=== PATIENT | male | born 1970 | race Caucasian/White ===

== ENCOUNTER 2022-09-04 08:19 | Observation (INO) | payer OTHER, SELFPAY ==
[2022-09-04] VITALS (23 sets, daily range): BP systolic 148–180; BP diastolic 77–109; PULSE 67–95; RESP 12–20; TEMP 36.3–37; O2SAT 95–100; BMI 45.0
--- NOTE | 2022-09-04 | ECHO_ITS ---
Patient Info Name: Pako Kitchen Age: 51 years : 1970 Gender: Male Ht: 72 in Wt: 343 lbs BSA: 2.89 m2 HR: 73 bpm BP: 156 / 105 mmHg Heart Rhythm: Sinus Rhythm Technical Quality: Fair Exam Date: 09/04/2022 4:29 PM Exam Location: [facility] Pul[facility] Patient Status: Outpatient Admit Date: 09/04/2022 Staff Ordering Physician: Miguel Ángel Mo MD Junior Sales Representative: Yennifer Salazar RDCS Attending Provider: Da Turcios MD Exam Type: CA echo dop bubble study w con Study Info Indications - cva Complete two-dimentional, color flow and Doppler transthoracic echocardiogram is performed with agitated saline and with contrast to opacify the left ventricle and to improve the delineation of the left ventricle endocardial borders. Contrast/Agitated Saline Contrast/Ag. Saline: Definity Amount: 3.00 ml Administered By: Yennifer Salazar RDCS Existing IV Access: Yes IV Access Condition: patent with no signs of infiltration Contrast/Ag. Saline: Agitated Saline Amount: 20.00 ml Administered By: Colleen Llamas [facility] Existing IV Access: Yes IV Access Condition: patent with no signs of infiltration Summary 1. Left ventricular chamber dimension is mildly enlarged. 2. Left ventricular systolic function is normal, estimated at >70%. 3. There is moderately increased left ventricular wall thickness. 4. The left ventricular diastolic function is grade I diastolic dysfunction. 5. Right ventricular systolic function is normal. 6. There is trace tricuspid valve regurgitation. Left Ventricle Left ventricular chamber dimension is mildly enlarged. Left ventricular systolic function is normal, estimated at >70%. There is moderately increased left ventricular wall thickness. The left ventricular diastolic function is grade I diastolic dysfunction. Right Ventricle Right ventricular chamber dimension is normal. Right ventricular systolic function is normal. Left Atria Left atrial chamber dimension is normal. Right Atria Right atrial chamber dimension is normal. Atrial Septum Intact interatrial septum visualized by agitated saline imaging. Aortic Valve The aortic valve is trileaflet. There is no aortic valve stenosis. There is no aortic valve regurgitation. Pulmonic Valve The pulmonic valve is not well visualized. Mitral Valve The mitral valve has normal leaflets. There is no mitral valve stenosis. There is no mitral valve regurgitation. Tricuspid Valve There is trace tricuspid valve regurgitation. Pericardium/Pleural There is no pericardial effusion. Aorta The aortic root size at the sinus of Valsalva is normal. Left Ventricular Outflow Tract Name Value Normal LVOT 2D LVOT Diameter 2.2 cm LVOT Doppler LVOT Peak Gradient 2 mmHg LVOT Mean Gradient 1 mmHg LVOT VTI 12 cm LVOT VTI/AV VTI Ratio 0.8 LVOT Stroke Volume 47 ml LVO
--- NOTE | ~2022-09-04 | US_ITS ---
EXAMINATION: US carotid duplex BI DATE: 09/05/2022 09:16 INDICATION: CVA TECHNIQUE: Grayscale, color Doppler, and pulsed Doppler images of the cervical carotid arteries were obtained. The degree of vessel stenosis is placed in one of the following categories: normal, <50%, 5 0-69%, >=70% but less than near-occlusion, near-occlusion, or total occlusion. Note that percent sten osis relative to normal distal artery lumen diameter is indirectly measured from velocity measurement s as described by Magdy, et al. Radiology 2003; 229:340-346. Notes: Normal: Peak systolic velocity <125 centimeters/sec and no plaque <50%. Peak systolic velocity <125 ( EDV <40; ICA/CCA PSV ratio <2.0; used these factors only a tandem lesions or low cardiac output or co ntralateral disease) 50-69 %: PSV 125-230 (EDV 40-100; ratio 2-4) >= 70% but less than near occlusion: PSV greater than 230 (EDV > 100; ratio> 4.0) Near Occlusion: PSV that is variable; markedly narrowed lumen Occlusion: Absent flow on color/spectral Doppler and no lumen on yao scale. COMPARISON: None. FINDINGS: RIGHT: The right common carotid artery (CCA) peak systolic velocity (PSV) is 147 cm/s. The right internal ca rotid artery (ICA) PSV is 141 cm/s. The right ICA end-diastolic velocity (EDV) is 30 cm/s. The right ICA/CCA PSV ratio is 1.0. The external carotid artery (ECA) PSV is 118 cm/s. There is antegrade flow in the right vertebral artery. LEFT: The left CCA PSV is 105 cm/s. The left ICA PSV is 76 cm/s. The left ICA EDV is 12 cm/s. The left ICA/ CCA PSV ratio is 0.7. The ECA PSV is 144 cm/s. There is antegrade flow in the left vertebral artery. IMPRESSION: 1. 50-69% stenosis in the right internal carotid artery by sonographic criteria. 2. Less than 50% stenosis in the left internal carotid artery by sonographic criteria. Reviewed, dictated and finalized at location A. STICKER IMPRESSION: 1. 50-69% stenosis in the right internal carotid artery by sonographic criteria . 2. Less than 50% stenosis in the left internal carotid artery by sonographic cr iteria.
--- NOTE | ~2022-09-04 | XR_ITS ---
EXAMINATION: XR chest 2V 09/04/2022 09:05 INDICATION: Shortness of breath PROCEDURE: 2 view chest COMPARISON: No prior studies for comparison. FINDINGS: The lungs are clear. The cardiomediastinal silhouette is within normal limits. There are no pleural effusions. There is no pneumothorax suspected. IMPRESSION: 1: NO ACUTE CARDIOPULMONARY DISEASE. Reviewed, dictated and finalized at location A. RINTENDENT POWER
--- NOTE | ~2022-09-04 | MR_ITS ---
EXAMINATION: MR brain/brain stem wo/w con DATE: 09/05/2022 08:59 INDICATION: Cerebrovascular accident. TECHNIQUE: Magnetic resonance imaging (MRI) of the brain and brainstem was performed without and with 20 mL MultiHance intravenous contrast. COMPARISON: Head CT 09/04/2022 FINDINGS: There are acute infarcts involving right frontal parietal region, right parietal lobe, and the bilateral occipital lobes. There is an old infarct in posterior right frontal lobe. There is a sm all old infarct in right lentiform nucleus. There is no intracranial hemorrhage or abnormal mass lesi on. The ventricles are normal in size. There is mild mucosal thickening in the paranasal sinuses. The orbits are normal. There is a trace right mastoid effusion. IMPRESSION: 1. Acute infarcts involving the right frontoparietal region, right parietal lobe, and bilateral occip ital lobes. 2. Old infarcts in posterior right frontal lobe and right lentiform nucleus. Reviewed, dictated and finalized at location A. OLEUM REFINERY WORKER IMPRESSION: 1. Acute infarcts involving the right frontoparietal region, right parietal lob e, and bilateral occipital lobes. 2. Old infarcts in posterior right frontal lobe and right lentiform nucleus.
--- NOTE | ~2022-09-04 | CT_ITS ---
EXAMINATION: CT brain wo con DATE: 09/04/2022 09:00 INDICATION: Left arm heaviness, numbness. TECHNIQUE: Computed tomography (CT) of the head was performed without intravenous contrast. The mA wa s adjusted according to patient size. Iterative reconstruction technique was employed. The dose-lengt h product was 605.33 mGy-cm. COMPARISON: None FINDINGS: There is an infarct in right parietal lobe. There is a small infarct in right frontal lobe. There is no intracranial hemorrhage or abnormal mass lesion. The ventricles are normal in size. The orbits are normal. There is mild mucosal thickening in the paranasal sinuses. There is a small right mastoid effusion. There is cerumen in the external auditory canals. IMPRESSION: 1. Infarct in right parietal lobe, likely acute or subacute. 2. Small age-indeterminate infarct in right frontal lobe. Reviewed, dictated and finalized at location A. CE SUPPORT CLERK
--- NOTE | 2022-09-04 08:44 | ECG_ITS ---
Measurements Intervals [place] Rate: 75 P: 35 MO: 159 QRS: -20 QRSD: 102 T: 31 QT: 378 QTc: 424 Interpretive Statements SINUS RHYTHM NORMAL ECG NO PREVIOUS ECG AVAILABLE FOR COMPARISON Electronically Signed On 09-04-2022 10:51:17 SUBMARINE ELEMENT COORDINATOR by Bean Rendon D.O.
[2022-09-04 09:03] LABS: Basophils Absolute Auto 0.1 K/mm3 (0.0-0.1); Basophils Percent Auto 0.7 % (0.2-1.2); Eosinophils Absolute Auto 0.2 K/mm3 (0-0.3); Eosinophils Percent Auto 2.2 % (0-4.4); Hematocrit 44.2 % (42.0-52.0); Hemoglobin 15.1 g/dL (14.0-18.0); Immature Granulocyte Absolute 0.05 K/mm3 (0.00-0.031); Immature Granulocyte Percent A 0.7 % (0-0.5); Lymphocytes Absolute Auto 1.72 K/mm3 (0.9-3.2); Lymphocytes Percent Auto 23.7 % (18.3-44.2); Mean Corpuscular HGB Conc 34.2 g/dl (32-36); Mean Corpuscular Hemoglobin 29.1 pg (26-34); Mean Corpuscular Volume 85.2 fl (80-100); Mean Platelet Volume 9.4 fl (7.4-10.4); Monocytes Absolute Auto 0.7 K/mm3 (0.1-0.6); Monocytes Percent Auto 9.1 % (2.6-8.5); Neutrophils Absolute Auto 4.6 K/mm3 (1.3-6.7); Neutrophils Percent Auto 63.6 % (45.5-73.1); Platelet Count Result 750 k/mm3 (150-375); Red Blood Count 5.19 M/mm3 (4.6-6.20); Red Cell Distribution Width 13.4 % (11.5-14.5); White Blood Count 7.3 K/mm3 (4.5-10.0)
[2022-09-04 09:15] LABS: INR 1.1; Partial Thromboplastin Time 26.8 SECONDS (22.3-36.8); Prothrombin Time 13.3 Seconds (11.1-14.7)
[2022-09-04 09:21] LABS: Alanine Aminotransferase 40 U/L (6-50); Albumin Level 4.6 g/dL (3.5-5.1); Alkaline Phosphatase 78 U/L (38-126); Anion Gap 14 mmol/L (8-16); Aspartate Amino Transferase 38 U/L (17-59); Bilirubin,Total 0.6 mg/dL (0.2-1.3); Blood Urea Nitrogen 12 mg/dL (9-20); Calcium 8.8 mg/dL (8.4-10.2); Carbon Dioxide 23 mmol/L (22-30); Chloride 99 mmol/L (98-107); Estimated CRCL calculation 168 ml/min; Estimated Glomerular Filt Rate > 60; Glucose 309 mg/dL (65-110); Lipase 173 U/L (23-300); Potassium 4.3 mmol/L (3.4-5.0); Sodium 136 mmol/L (137-145)
[2022-09-04 09:31] LABS: Troponin I 0.025 ng/mL (0.000-0.034)
[2022-09-04] MEDS: ASPIRIN 81 MG CHEWABLE TABLET 324 MG PO (10:59)
--- NOTE | 2022-09-04 11:19 | ED.NEUROSD ---
HPI - Neuro Symptoms/Deficit General Chief Complaint: Neuro Symptoms/Deficit Stated Complaint: left arm numb since fri no control, bs over 300's Time Seen by Provider: 09/04/22 09:34 Source: patient Mode of arrival: ambulatory Limitations: no limitations History of Present Illness HPI Narrative: 51-year-old with a history of hypertension, diabetes, hyperlipidemia, seizure disorder on Keppra here with complaints of left arm heaviness for past 4 days, he also states that his his fingertips on the left are hypersensitive to touch. He denies having any headache, chest pain. He is able to ambulate without any problem. Onset (ago): day(s) (4) Location: left arm History of same: Yes Severity: moderate Relieving factors: none Exacerbating factors: none Context: gradual onset On Anticoagulants: No Associated symptoms: denies other symptoms Related Data Allergies Allergy/AdvReac Type Severity Reaction Status Date / Time No Known Allergies Allergy Verified 09/04/22 09:44 Review of Systems Review of Systems: All systems reviewed & are unremarkable except as noted in HPI and below Constitutional: Constitutional: Reports no additional constitutional complaints Eyes: Eyes: Reports no additional eye complaints ENT: Reports system reviewed and no additional complaints, except as documented Cardiovascular: Cardiovascular: Reports no additional cardiovascular complaints Respiratory: Respiratory: Reports no additional respiratory complaints Gastrointestinal: Gastrointestinal: Reports no additional gastrointestinal complaints Musculoskeletal: Musculoskeletal: Reports no additional musculoskeletal complaints Integumentary/Breasts: Skin/Breast: Reports system reviewed and no additional complaints, except as docu Neurologic: Reports as per HPI Psychiatric: Psychiatric: Reports no additional psychiatric complaints PMFSH Past Medical History Medical History HTN (hypertension) Social History Social History Smoking status: Never smoker Alcohol intake: current Exam Narrative: GENERAL: Well-appearing, well-nourished, and in no acute distress. HEAD: Normocephalic, atraumatic. EYES: PERRLA and EOMI.. NECK: Supple. CHEST: Clear to auscultation. No respiratory distress. HEART: Regular rate and rhythm. No murmur heard. Normal peripheral pulses. ABDOMEN: Soft, nontender, nondistended, normal active bowel sounds. EXTREMITIES: Normal range of motion. No edema. SKIN: Warm, dry, no rash. NEURO: No focal deficits. Alert and oriented x3. Hypersensitive to touch on the left side mostly on the fingertips PSYCH: Normal mood and affect. Course Course Emergency Course: Inform patient about his lab work, CT findings. Discussed with Dr. Kohli will see the patient we will admit him for stroke work-up. Vital Signs Vital signs: Vital Signs Temperature 36.7 C 09/04/22 08:32 Pulse Rate 95 09/04/22 08:32 Respiratory Rate 18 09/04/22 08:32 Blood Pressure 180/95 H 09/04/22 08:32 Pulse Oximetry 99 09/04/22 08:32 Oxygen Delivery Room Air 09/04/22 08:32 Temperature 36.7 C 09/04/22 08:32 Pulse Rate 73 09/04/22 11:04 Respiratory Rate 19 09/04/22 11:04 Blood Pressure 156/105 H 09/04/22 11:04 Pulse Oximetry 99 09/04/22 11:04 Oxygen Delivery Room Air 09/04/22 08:32 MDM - Neuro Symptoms/Deficit MDM Narrative Medical decision making narrative: 51-year-old with a history of hypertension diabetes, hyperlipidemia seizure disorder now just has left upper extremity heaviness but no motor deficit we will do a CT of the head, cardiac work-up. CT shows subacute stroke inform patient about his lab and CT findings. Agreeable for admission. Differential Diagnosis Differential diagnosis: Likely cerebrovascular accident Medical Records Attestation: I reviewed the patient's medical records. Lab Data Attes
[2022-09-04 12:44] LABS: Troponin I 0.034 ng/mL (0.000-0.034)
[2022-09-04 12:49] LABS: SARS-CoV-2 RNA PCR Negative
--- NOTE | 2022-09-04 12:57 | PM.IMHP ---
H&P: HPI History of Present Illness Date/Time: 09/04/22 12:57 Chief Complaint: Neuro symptoms Narrative: This is a 51-year-old male patient who has a history of hypertension, hyperlipidemia and diabetes. The patient admits that he is not always compliant with his medications. The patient stated that he has had seizures the past and he blames them on hyper glycemia. The patient stated he was not feeling very well this past on ving he still has some neuropathy but was having some pain in his finger tips on the left hand. He thought this was just neuropathy and he put muscle cream on the fingers and stated it felt better. However the patient has been having some heaviness to his left arm for 4 days now. He stated that his sugars are higher than normal and they have been in the 200s. The patient is supposed to take a daily aspirin but has not been taking it. CT of the brain was read as infarct in the right parietal lobe, likely acute or subacute. Small age indeterminate infarct in right frontal lobe. The patient does have some left arm weakness that is mild and some mild pronator drifting to that left arm. Chest x-ray was read as no acute cardiopulmonary disease. His blood sugar today was 309. Troponins were negative x2. The patient was negative for COVID. Initially the patient was admitted to inpatient then it was changed to observation status on the date of service of 09/04/2022. Review of Systems Review of Systems: See HPI All systems reviewed & are unremarkable except as noted in HPI and below Constitutional: Constitutional: Reports as per HPI and Reports no additional constitutional complaints Eyes: Eyes: Reports as per HPI and Reports no additional eye complaints ENT: Reports system reviewed and no additional complaints, except as documented and Reports Normal hearing present Cardiovascular: Cardiovascular: Reports no additional cardiovascular complaints Respiratory: Respiratory: Reports no additional respiratory complaints and Reports no additional respiratory complaints Gastrointestinal: Gastrointestinal: Reports as per HPI and Reports no additional gastrointestinal complaints Musculoskeletal: Musculoskeletal: Reports no additional musculoskeletal complaints Integumentary/Breasts: Skin/Breast: Reports system reviewed and no additional complaints, except as docu and Reports as per HPI Neurologic: Reports system reviewed and no additional complaints, except as documented, Reports as per HPI and Reports Normal hearing present Psychiatric: Psychiatric: Reports no additional psychiatric complaints and Reports as per HPI Endocrine: Endocrine: Reports no additional endocrine complaints Hematologic/Lymphatic: Hematologic/Lymphatic: Reports no additional hematologic/lymphatic complaints Allergic/Immunologic: Allergic/Immunologic: Reports no additional allergic/immunologic complaints [facility] Past Medical History Medical History (Updated 09/04/22 @ 14:19 by Muriel Smith NP) Diabetes mellitus HLD (hyperlipidemia) HTN (hypertension) Hypothyroidism Seizure Surgical History Surgical History (Updated 09/04/22 @ 12:59 by Muriel Smith NP) History of appendectomy Family History Family History (Updated 09/04/22 @ 13:01 by Muriel Smith NP) Mother Diabetes mellitus Daughter POTS (postural orthostatic tachycardia syndrome) Hypothyroidism Social History Social History (Updated 09/04/22 @ 14:20 by Muriel Smith NP) Social History: The patient lives with his . 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 He has 2 children. He is a lifelong nonsmoker. He denies any marijuana alcohol or illicit drugs. His is his durable power research attorney for healthcare. Code status full code Smoking status: Never smoker Alcohol intake: current Meds Home Medications and Allergies Home Medications Medication Instructions Recorded Confirmed Type amlodipine 10 mg ta
[2022-09-04] MEDS: INSULIN HUMAN REGULAR (*BKC) 100 UNITS/ML 8 UNITS SUB-Q (13:36)
[2022-09-04 14:54] LABS: Glucose Point of Care 323 mg/dl (65-105)
--- NOTE | 2022-09-04 14:54 | ADMGEN ---
This patient, Pako Kitchen, was admitted to IMU Room 205-02. Patient/family oriented to hospital policies and general routines including ID bracelet, bed and alarms, visiting hours, pain management, procedures, bathroom and other care routines, personal items, smoking policy, room service/diet, and visiting hours. Information on how to activate the Rapid Response Team has been discussed. Patient/Family are encouraged to report perceived risks to care and to ask questions if they do not understand what they are told or what they should do.
[2022-09-04] MEDS: INSULIN ASPART (*BKC) 100 UNITS/ML SUB-Q ×2 (15:18→17:18)
[2022-09-04 16:49] LABS: Troponin I 0.055 ng/mL (0.000-0.034)
[2022-09-04] MEDS: PERFLUTREN LIPID MICROSPHERES 1.5 ML VIAL DILUTED TO 10 ML TOTAL VOLUME IV PUSH (17:07)
--- NOTE | 2022-09-04 17:08 | IVDEFINITY ---
Prior to administration of IV Definity the patient was educated on the risks and benefits of the imaging enhancing agent including potential adverse side effects. The patient verbalized understanding. Allergies were verified. No exclusion criteria were identified and at least one of the following inclusion criteria were met: 1) physician request, 2) patient technically difficult to image (per the [place] [employer]ocardi[employer] guidelines of two or more segments not discernable within the apical view), or 3) questionable left ventricular function. ?
[2022-09-04 17:18] LABS: Glucose Point of Care 226 mg/dl (65-105)
[2022-09-04] MEDS: LOSARTAN POTASSIUM 100 MG TABLET PO (17:19)
[2022-09-04] MEDS: amLODIPine BESYLATE 5 MG TABLET 10 MG PO (17:19)
[2022-09-04 17:59] LABS: Glucose Point of Care 252 mg/dl (65-105)
[2022-09-04 20:17] LABS: Glucose Point of Care 211 mg/dl (65-105)
[2022-09-04] MEDS: ATORVASTATIN 40 MG TABLET PO (21:11)
[2022-09-04] MEDS: ACETAMINOPHEN 325 MG TABLET 650 MG PO (21:12)
[2022-09-05] VITALS (9 sets, daily range): BP systolic 150–154; BP diastolic 66–94; PULSE 66–96; RESP 18–20; TEMP 36.3–36.9; O2SAT 97–100
[2022-09-05 04:55] LABS: Basophils Absolute Auto 0.1 K/mm3 (0.0-0.1); Basophils Percent Auto 0.7 % (0.2-1.2); Eosinophils Absolute Auto 0.2 K/mm3 (0-0.3); Eosinophils Percent Auto 2.4 % (0-4.4); Hematocrit 41.6 % (42.0-52.0); Hemoglobin 14.1 g/dL (14.0-18.0); Immature Granulocyte Absolute 0.05 K/mm3 (0.00-0.031); Immature Granulocyte Percent A 0.7 % (0-0.5); Lymphocytes Absolute Auto 1.88 K/mm3 (0.9-3.2); Lymphocytes Percent Auto 26.7 % (18.3-44.2); Mean Corpuscular HGB Conc 33.9 g/dl (32-36); Mean Corpuscular Hemoglobin 28.4 pg (26-34); Mean Corpuscular Volume 83.7 fl (80-100); Mean Platelet Volume 9.3 fl (7.4-10.4); Monocytes Absolute Auto 0.8 K/mm3 (0.1-0.6); Monocytes Percent Auto 11.9 % (2.6-8.5); Neutrophils Percent Auto 57.6 % (45.5-73.1); Platelet Count Result 659 k/mm3 (150-375); Red Blood Count 4.97 M/mm3 (4.6-6.20); Red Cell Distribution Width 13.4 % (11.5-14.5)
[2022-09-05 05:11] LABS: Lactic Acid Reflex 1.1 mmol/L (0.7-2.0)
[2022-09-05 05:16] LABS: Alanine Aminotransferase 45 U/L (6-50); Albumin Level 4.1 g/dL (3.5-5.1); Alkaline Phosphatase 74 U/L (38-126); Anion Gap 9 mmol/L (8-16); Aspartate Amino Transferase 45 U/L (17-59); Bilirubin,Total 0.7 mg/dL (0.2-1.3); Blood Urea Nitrogen 11 mg/dL (9-20); Calcium 8.6 mg/dL (8.4-10.2); Carbon Dioxide 26 mmol/L (22-30); Chloride 100 mmol/L (98-107); Estimated CRCL calculation 189 ml/min; Estimated Glomerular Filt Rate > 60; Glucose 219 mg/dL (65-110); Magnesium 1.9 mg/dL (1.6-2.3); Phosphorus 3.8 mg/dL (2.5-4.5); Potassium 3.7 mmol/L (3.4-5.0); Sodium 135 mmol/L (137-145)
[2022-09-05] MEDS: LEVOTHYROXINE SODIUM 50 MCG TABLET PO (05:50)
[2022-09-05] MEDS: LOSARTAN POTASSIUM 100 MG TABLET PO (09:32)
[2022-09-05] MEDS: amLODIPine BESYLATE 5 MG TABLET 10 MG PO (09:32)
[2022-09-05] MEDS: ASPIRIN 81 MG ENTERIC TABLET PO (09:34)
--- NOTE | 2022-09-05 11:32 | PM.IMPN ---
Progress Note: A&P Assessment and Plan (1) Acute CVA (cerebrovascular accident): Code(s): I63.9 - Cerebral infarction, unspecified Status: Acute Assessment and Plan: -echo done, report pending -MRI obtain-shows acute stroke -ultrasound of the carotids done -neurology has been consulted. continue aspirin, Statin daily. -PT and OT evaluation - will check lipid profile. (2) Diabetes mellitus: Qualifiers: Diabetes mellitus type: type 2 Diabetes mellitus long lines operator insulin use: without long lines operator use Diabetes mellitus complication status: without complication Qualified Code(s): E11.9 - Type 2 diabetes mellitus without complications Code(s): E11.9 - Type 2 diabetes mellitus without complications Status: Acute Assessment and Plan: -sliding scale insulin with Accu-Cheks AC and HS and hypoglycemic protocol. -hold metformin at this time due to contrast dye (3) HLD (hyperlipidemia): Qualifiers: Hyperlipidemia type: mixed hyperlipidemia Qualified Code(s): E78.2 - Mixed hyperlipidemia Code(s): E78.5 - Hyperlipidemia, unspecified Status: Acute Assessment and Plan: -continue with atorvastatin (4) HTN (hypertension): Qualifiers: Hypertension type: essential hypertension Qualified Code(s): I10 - Essential (primary) hypertension Code(s): I10 - Essential (primary) hypertension Status: Acute Assessment and Plan: -continue with losartan (5) Hypothyroidism: Code(s): E03.9 - Hypothyroidism, unspecified Status: Acute Assessment and Plan: -check thyroid level -continue with levothyroxine (6) Seizure: Code(s): R56.9 - Unspecified convulsions Status: Acute Assessment and Plan: -the patient stated he has had 2-3 seizures in the past and was seen by the neurologist but is not on any medication. The patient stated he was told it was related to his hyperglycemia. Subjective Date/time seen: 09/05/22 11:32 patient reports no focal neurological weakness. Just some wobbliness with walking Review of Systems Review of Systems: See HPI All systems reviewed & are unremarkable except as noted in HPI and below Constitutional: Constitutional: Reports as per HPI and Reports no additional constitutional complaints Eyes: Eyes: Reports as per HPI and Reports no additional eye complaints ENT: Reports system reviewed and no additional complaints, except as documented and Reports Normal hearing present Cardiovascular: Cardiovascular: Reports no additional cardiovascular complaints Respiratory: Respiratory: Reports no additional respiratory complaints and Reports no additional respiratory complaints Gastrointestinal: Gastrointestinal: Reports as per HPI and Reports no additional gastrointestinal complaints Musculoskeletal: Musculoskeletal: Reports no additional musculoskeletal complaints Integumentary/Breasts: Skin/Breast: Reports system reviewed and no additional complaints, except as docu and Reports as per HPI Neurologic: Reports system reviewed and no additional complaints, except as documented, Reports as per HPI and Reports Normal hearing present Psychiatric: Psychiatric: Reports no additional psychiatric complaints and Reports as per HPI Endocrine: Endocrine: Reports no additional endocrine complaints Hematologic/Lymphatic: Hematologic/Lymphatic: Reports no additional hematologic/lymphatic complaints Allergic/Immunologic: Allergic/Immunologic: Reports no additional allergic/immunologic complaints Exam Const: General: cooperative, healthy appearing, comfortable, no acute distress, well developed, alert, awake, Physically active, average body habitus, well nourished and overweight Nutritional Appearance: average body habitus, well nourished and overweight Orientation/consciousness: oriented to person, oriented to place, oriented to time and patient oriented x3 Limitations: no limitation
--- NOTE | 2022-09-05 11:51 | WPDNEURCNPN ---
Assessment and Plan Assessment and plan (1) Diabetes mellitus: Qualifiers: Diabetes mellitus type: type 2 Diabetes mellitus custodial insulin use: without terminal makeup operator use Diabetes mellitus complication status: without complication Qualified Code(s): E11.9 - Type 2 diabetes mellitus without complications Code(s): E11.9 - Type 2 diabetes mellitus without complications Status: Acute (2) HLD (hyperlipidemia): Qualifiers: Hyperlipidemia type: mixed hyperlipidemia Qualified Code(s): E78.2 - Mixed hyperlipidemia Code(s): E78.5 - Hyperlipidemia, unspecified Status: Acute (3) Acute CVA (cerebrovascular accident): Code(s): I63.9 - Cerebral infarction, unspecified Status: Acute (4) HTN (hypertension): Qualifiers: Hypertension type: essential hypertension Qualified Code(s): I10 - Essential (primary) hypertension Code(s): I10 - Essential (primary) hypertension Status: Acute (5) Neuropathy: Code(s): G62.9 - Polyneuropathy, unspecified Status: Acute (6) Carpal tunnel syndrome: Code(s): G56.00 - Carpal tunnel syndrome, unspecified upper limb Status: Acute Plan 1 bihemispheric subcortical strokes 2/ 50 to 69% stenosis of the right internal carotid artery 3/ rule out the possibility of associated cardiac involvement with echocardiogram with bubble study because of the underlying bihemispheric stroke 4/ neuropathy with the possibility of carpal tunnel syndrome as well. Consult date: 09/05/22 Time Seen: 11:30 Reason for consult: Stroke HPI: Pako Kitchen is a 51 year old male admitted to the hospital through the emergency room where he came with the complaints of numbness of the left upper extremity with loss of control, in addition he has ongoing history of 1. Hypertension 2. Hyperlipidemia 3. Diabetes mellitus 4. Seizure disorder for which he is taking Keppra he gave no history of associated headaches or chest pain and he was able to ambulate without any specific problems, he is not known to be allergic to any medications, as mentioned above he does have hypertension, he has never a smoker, and is a current alcohol intaker, initial examination in the emergency room revealed him to have no focal neurological deficit, his vital signs were stable except the blood pressure of 180/95 with pulse of 95, initial CT scan of the head revealed infarct in the right parietal lobe in addition to small age indeterminate infarct in the right frontal lobe as well. EKG revealed no evidence of atrial fibrillation, he was admitted to the hospital for further evaluation particularly to undergo the MRI of the brain. MRI revealed acute infarct involving the right frontoparietal region and right parietal lobe and bilateral occipital lobe in addition to the old infarct in the posterior right frontal lobe and right lentiform nucleus. Carotid Doppler study documented 50 to 69% stenosis in the right internal carotid artery and less than 50% in the left internal carotid artery, chest x-ray negative Review of Systems Review of Systems: All systems reviewed & are unremarkable except as noted in HPI and below PMFSH Past Medical History Medical History (Updated 09/05/22 @ 12:02 by Norberto Kohli MD) Diabetes mellitus HLD (hyperlipidemia) HTN (hypertension) Hypothyroidism Seizure Surgical History Surgical History (Updated 09/04/22 @ 12:59 by Muriel Smith NP) History of appendectomy Family History Family History (Updated 09/04/22 @ 15:08 by Katya Alexander RN) Mother Diabetes mellitus Daughter Hypothyroidism POTS (postural orthostatic tachycardia syndrome) Grandparent Hypertension Social History Social History (Updated 09/04/22 @ 14:20 by Muriel Smith NP) Social History: The patient lives with his . 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 He has 2 children. He is a lifelong nonsmoker. He denies any marijuana
[2022-09-05 12:02] LABS: Glucose Point of Care 292 mg/dl (65-105)
[2022-09-05] MEDS: INSULIN ASPART (*BKC) 100 UNITS/ML SUB-Q (13:00)
[2022-09-05 13:17] LABS: Cholesterol 197 mg/dL (0-200); HDL Direct 23 mg/dL; Triglycerides 338 mg/dL (<150)
[2022-09-05 13:28] LABS: LDL Cholesterol Direct 102 mg/dL
--- NOTE | 2022-09-05 13:48 | PM.DS ---
DS: Admitting Diagnosis Discharge Date 09/05/22 Admitting Diagnosis CVA DS: Discharge Diagnosis Discharge Diagnosis (1) Carpal tunnel syndrome: Code(s): G56.00 - Carpal tunnel syndrome, unspecified upper limb Status: Acute (2) Acute CVA (cerebrovascular accident): Code(s): I63.9 - Cerebral infarction, unspecified Status: Acute (3) HLD (hyperlipidemia): Qualifiers: Hyperlipidemia type: mixed hyperlipidemia Qualified Code(s): E78.2 - Mixed hyperlipidemia Code(s): E78.5 - Hyperlipidemia, unspecified Status: Acute (4) Diabetes mellitus: Qualifiers: Diabetes mellitus type: type 2 Diabetes mellitus termite inspector insulin use: without termite inspector use Diabetes mellitus complication status: without complication Qualified Code(s): E11.9 - Type 2 diabetes mellitus without complications Code(s): E11.9 - Type 2 diabetes mellitus without complications Status: Acute (5) HTN (hypertension): Qualifiers: Hypertension type: essential hypertension Qualified Code(s): I10 - Essential (primary) hypertension Code(s): I10 - Essential (primary) hypertension Status: Acute DS: Summary Hospital Course Hospital Course: Pako Kitchen is a 51 year old male? admitted to the hospital through the emergency room where he came with the complaints of numbness of the left upper extremity with loss of control, in addition he has ongoing history of 1. Hypertension 2. Hyperlipidemia 3. Diabetes mellitus 4. Seizure disorder for which he is taking Keppra he gave no history of associated headaches or chest pain and he was able to ambulate without any specific problems, he is not known to be allergic to any medications, as mentioned above he does have hypertension, he has never a smoker, and is a current alcohol intaker. Neurology was consulted. initial examination in the emergency room revealed him to have no focal neurological deficit, his vital signs were stable except the blood pressure of 180/95 with pulse of 95, initial CT scan of the head revealed infarct in the right parietal lobe in addition to small age indeterminate infarct in the right frontal lobe as well.? EKG revealed no evidence of atrial fibrillation, he was admitted to the hospital for further evaluation particularly to undergo the MRI of the brain.? MRI revealed acute infarct involving the right frontoparietal region and right parietal lobe and bilateral occipital lobe in addition to the old infarct in the posterior right frontal lobe and right lentiform nucleus.? Carotid Doppler study documented 50 to 69% stenosis in the right internal carotid artery and less than 50% in the left internal carotid artery, chest x-ray negative. Echo normal. Echo: ?1. Left ventricular chamber dimension is mildly enlarged. ? 2. Left ventricular systolic function is normal, estimated at >70%. ? 3. There is moderately increased left ventricular wall thickness. ? 4. The left ventricular diastolic function is grade I diastolic dysfunction. ? 5. Right ventricular systolic function is normal. ? 6. There is trace tricuspid valve regurgitation. patient has no focal neurological weakness. he is ok to be discharged home per neurology. he will f/u with them in outpatient clinic for an EMG. Time Spent with Patient Time attestation: Total time spent providing and/or coordinating discharge services: Exam Const: General: cooperative, comfortable, no acute distress and obese Orientation/consciousness: oriented to person, oriented to place and oriented to time Limitations: no limitations HENMT: Head: normocephalic Ears: hearing grossly normal bilaterally Face/Nose/Sinus: Normal external nose present Face and sinus: normal facial exam Mouth: Yes Normal oral and palatal mucosa present Eyes: General: appearance normal, both eyes and all related structures Visual Cavazos: normal visual cavazos by confrontation Alignment and Position: alignment mildred
== END 2022-09-05 15:57 | disposition home or self-care (01) ==
LOC: ANHED 11:20 → ANHIMU 18:40
PROVIDERS: Nurse Practitioner; Admitting Provider Family Medicine; Emergency Provider Family Medicine; PCP Emergency Medicine; Visit Provider Hospitalist
DX: I63.9 Cerebral infarction, unspecified (principal); G56.00 Carpal tunnel syndrome, unspecified upper limb; E78.5 Hyperlipidemia, unspecified; E11.65 Type 2 diabetes mellitus with hyperglycemia; I11.9 Hypertensive heart disease without heart failure; E03.9 Hypothyroidism, unspecified; G40.909 Epilepsy, unspecified, not intractable, without status epilepticus; G62.9 Polyneuropathy, unspecified; F10.90 Alcohol use, unspecified, uncomplicated; Z20.822 Contact with and (suspected) exposure to COVID-19; R29.700 NIHSS score 0; Z91.14 Patient's other noncompliance with medication regimen; Z79.82 Long term (current) use of aspirin; Z79.84 Long term (current) use of oral hypoglycemic drugs; Z79.899 Other long term (current) drug therapy; Z83.3 Family history of diabetes mellitus; Z82.49 Family history of ischemic heart disease and other diseases of the circulatory system; Z84.89 Family history of other specified conditions
CPT/HCPCS: 36415; 70450; 70553; 71046; 80053; 80061; 82948; 83605; 83690; 83735; 84100; 84443; 84484; 85025; 85610; 85730; 93005; 93880; 96374; 96375; 97161; 97165; 99285; A9270; A9577; C8929; G0378; J1815; Q9957; U0003; U0005

== ENCOUNTER 2023-04-24 15:30 | Emergency (ER) | payer OTHER, SELFPAY ==
--- NOTE | ~2023-04-24 | XR_ITS ---
EXAMINATION: XR chest 2V 04/24/2023 16:02 INDICATION: Left arm numbness PROCEDURE: 2 view chest COMPARISON: 09/04/2022 FINDINGS: The lungs are clear. The cardiomediastinal silhouette is within normal limits. There are no pleural effusions. There is no pneumothorax suspected. IMPRESSION: 1: NO ACUTE CARDIOPULMONARY DISEASE. Reviewed, dictated and finalized at location A.
--- NOTE | ~2023-04-24 | CT_ITS ---
EXAMINATION: CT brain wo con DATE: 04/24/2023 17:38 INDICATION: headache and poss vertigo for 3 weeks . TECHNIQUE: Computed tomography (CT) of the head was performed without intravenous contrast. The mA wa s adjusted according to patient size. Iterative reconstruction technique was employed. The dose-lengt h product was 681.00 mGy-cm. COMPARISON: 09/04/2022; MR brain 09/05/2022. FINDINGS: No acute intracranial hemorrhage or extra-axial fluid collection. No hydrocephalus, mass, or herniation. No acute ischemic infarct. Unremarkable dural venous sinus attenuation. No acute osseous abnormality. The aerated spaces are clear. Moderate atrophy. Focal encephalomalacia in the right parieto-occipital lobe. Subtle focal encephalom alacia in the right posterior frontal lobe and bilateral occipital lobes. IMPRESSION: No acute intracranial process. Reviewed, dictated and finalized at location K.
[2023-04-24 15:35] VITALS: BP 199/99; PULSE 76; RESP 16; TEMP 36.1; O2SAT 99
--- NOTE | 2023-04-24 15:35 | ECG_ITS ---
Measurements Intervals [place] Rate: 69 P: 11 [place]: 158 QRS: -18 QRSD: 101 T: 5 QT: 413 QTc: 445 Interpretive Statements SINUS RHYTHM BORDERLINE T WAVE ABNORMALITY- INFERIOR LEADS BORDERLINE ECG COMPARED TO ECG 09/04/2022 08:49:16 NO SIGNIFICANT CHANGES Electronically Signed On 04-24-2023 16:21:45 CDT by Bean Rendon D.O.
[2023-04-24 15:49] LABS: Basophils Absolute Auto 0.1 K/mm3 (0.0-0.1); Basophils Percent Auto 0.7 % (0.2-1.2); Eosinophils Absolute Auto 0.3 K/mm3 (0-0.3); Eosinophils Percent Auto 3.3 % (0-4.4); Hematocrit 42.7 % (42.0-52.0); Immature Granulocyte Absolute 0.05 K/mm3 (0.00-0.031); Immature Granulocyte Percent A 0.6 % (0-0.5); Lymphocytes Absolute Auto 1.79 K/mm3 (0.9-3.2); Lymphocytes Percent Auto 20.3 % (18.3-44.2); Mean Corpuscular HGB Conc 32.8 g/dl (32-36); Mean Corpuscular Hemoglobin 28.9 pg (26-34); Mean Corpuscular Volume 88.2 fl (80-100); Mean Platelet Volume 9.5 fl (7.4-10.4); Monocytes Absolute Auto 0.9 K/mm3 (0.1-0.6); Neutrophils Absolute Auto 5.8 K/mm3 (1.3-6.7); Neutrophils Percent Auto 65.1 % (45.5-73.1); Platelet Count Result 735 k/mm3 (150-375); Red Blood Count 4.84 M/mm3 (4.6-6.20); Red Cell Distribution Width 14.3 % (11.5-14.5); White Blood Count 8.8 K/mm3 (4.5-10.0)
[2023-04-24 15:59] LABS: Alanine Aminotransferase 37 U/L (6-50); Albumin Level 4.7 g/dL (3.5-5.1); Alkaline Phosphatase 57 U/L (38-126); Anion Gap 11 mmol/L (8-16); Aspartate Amino Transferase 35 U/L (17-59); Bilirubin,Total 0.4 mg/dL (0.2-1.3); Blood Urea Nitrogen 20 mg/dL (9-20); Calcium 9.4 mg/dL (8.4-10.2); Carbon Dioxide 26 mmol/L (22-30); Chloride 100 mmol/L (98-107); Estimated Glomerular Filt Rate > 60; Glucose 186 mg/dL (65-110); Potassium 4.2 mmol/L (3.4-5.0); Sodium 137 mmol/L (137-145)
[2023-04-24 16:11] LABS: Troponin I < 0.012 ng/mL (0.000-0.034)
[2023-04-24 16:18] VITALS: BP 174/95; PULSE 73; RESP 22; TEMP 36.6; O2SAT 98
--- NOTE | 2023-04-24 16:28 | PC.NURSE ---
Pt states left arm feels heavier than normal. Pt also states he has had trouble typing at work and reports decreased sensation to left hand.
--- NOTE | 2023-04-24 17:29 | ED.WEAKNESS ---
HPI - Weakness General Chief complaint: Weakness Stated complaint: left arm numbness 3-4 days ago Time Seen by Provider: 04/24/23 16:05 History of Present Illness HPI Narrative: Patient is a 52-year-old male with a history of hypertension, hyperlipidemia, diabetes, obesity, hypothyroidism presenting with weakness. Patient states that for the last several days he has been feeling generally rundown. States that he was at work today and he felt so tired after giving it for that he felt he could fall asleep. States that his left arm has felt heavier than normal for the last 3 to 4 days. He denies chest pain or shortness of breath. States that he has felt a bit off balance for the last 3 to 4 weeks. Denies focal numbness or weakness. Complains of a headache that has been moderately responsive to Tylenol. No nausea or vomiting, dysuria, diarrhea, leg swelling, rashes. No vision changes or speech changes. Patient states that he has not been compliant with any of his medications for several months now. Related Data Allergies Allergy/AdvReac Type Severity Reaction Status Date / Time No Known Allergies Allergy Verified 04/24/23 16:29 Review of Systems Review of Systems: All systems reviewed & are unremarkable except as noted in HPI and below PMFSH Past Medical History Medical History Diabetes mellitus HLD (hyperlipidemia) HTN (hypertension) Hypothyroidism Seizure Surgical History Surgical History History of appendectomy Family History Family History Mother Diabetes mellitus Daughter Hypothyroidism POTS (postural orthostatic tachycardia syndrome) Grandparent Hypertension Social History Social History Social History: The patient lives with his . 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 He has 2 children. He is a lifelong nonsmoker. He denies any marijuana alcohol or illicit drugs. 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 Code status full code Smoking status: Never smoker Alcohol intake: never Drinks per week: 0 Substance use: never Lack of Transportation: No Lack of Food: Never True Current Housing: I Have Housing Concerned About Future Housing: No Difficulty Paying Gas/Electric Bills: No Difficulty Paying for Meds: No Currently Unemployed: No Education: Bachelor's Degree Difficulty w/ Childcare or Family Care: No Spiritual care concerns: No Exam Narrative: GENERAL: Well-appearing, well-nourished, and in no acute distress. HEAD: Normocephalic, atraumatic. EYES: PERRLA and EOMI. ENT: Nares clear, no rhinorrhea or epistaxis. Mucous membranes moist. NECK: Supple. CHEST: Clear to auscultation. No respiratory distress. HEART: Regular rate and rhythm. No murmur heard. Normal peripheral pulses. ABDOMEN: Soft, nontender, nondistended EXTREMITIES: Normal range of motion. No edema. SKIN: Warm, dry, no rash. NEURO: No focal deficits. Alert and oriented x3. 5 out of 5 strength in all extremities, no sensory deficits, no pronator drift, no dysarthria or aphasia PSYCH: Normal mood and affect. Course Vital Signs Vital signs: Vital Signs Temperature 97.0 F L 04/24/23 15:35 Pulse Rate 76 04/24/23 15:35 Respiratory Rate 16 04/24/23 15:35 Blood Pressure 199/99 H 04/24/23 15:35 Pulse Oximetry 99 04/24/23 15:35 Temperature 97.9 F 04/24/23 16:18 Pulse Rate 67 04/24/23 21:02 Respiratory Rate 14 04/24/23 21:02 Blood Pressure 162/88 H 04/24/23 21:02 Pulse Oximetry 98 04/24/23 21:02 Oxygen Delivery Room Air 04/24/23 16:18 MDM - Weakness MDM Narrative Medical decision making narrative: Patient is a 52-year-old male presenting with several days of increased fatigue. Patient is hyperten
[2023-04-24 17:38] LABS: Appearance Urine Clear (Clear); Bacteria Urine None Seen /hpf; Bilirubin Urine Negative (Negative); Blood Urine Negative (Negative); Color Urine Yellow (Yellow); Glucose Urine UA Negative (Negative); Ketones Urine Negative (Negative); Leukocyte Esterase Ur Negative LEU/UL (Negative); Nitrate Urine Negative (Negative); Non Pathogenic Casts 0-2; Protein Urine Trace mg/dL (Negative); RBC Urine 0-2 /hpf (0-2); Specific Grav Ur 1.012 (1.001-1.035); Squamous Epithelial Cell Urine None seen /hpf (Few); Urobilinogen Urine 0.2 mg/dL (<2.0); WBC Urine 0-5 /hpf
[2023-04-24] MEDS: KETOROLAC 15 MG/ML VIAL (*BKC) IV PUSH (17:45)
[2023-04-24] MEDS: SODIUM CHLORIDE 0.9% IV 1,000 ML 999 ML IV CONT (17:45)
[2023-04-24 17:46] LABS: Add Urine Microscopic? YES
[2023-04-24 18:01] LABS: Magnesium 1.9 mg/dL (1.6-2.3)
[2023-04-24 18:32] VITALS: BP 155/90; PULSE 68; RESP 24; O2SAT 97
[2023-04-24 21:02] VITALS: BP 162/88; PULSE 67; RESP 14; O2SAT 98
== END 2023-04-24 21:22 | disposition home or self-care (01) ==
PROVIDERS: Emergency Provider Emergency Medicine; PCP Emergency Medicine
DX: R53.83 Other fatigue (principal); R51.9 Headache, unspecified; T46.5X6A Underdosing of other antihypertensive drugs, initial encounter; I10 Essential (primary) hypertension; E11.9 Type 2 diabetes mellitus without complications; E78.5 Hyperlipidemia, unspecified; E03.9 Hypothyroidism, unspecified; E66.9 Obesity, unspecified; Z68.38 Body mass index [BMI] 38.0-38.9, adult; Z91.128 Patient's intentional underdosing of medication regimen for other reason; Z79.82 Long term (current) use of aspirin; Z79.84 Long term (current) use of oral hypoglycemic drugs; R94.31 Abnormal electrocardiogram [ECG] [EKG]
CPT/HCPCS: 36415; 70450; 71046; 80053; 81001; 83735; 84443; 84484; 85025; 93005; 96361; 96374; 99284; J1885; J7030